=== PATIENT | male | born 1970 | race Native Hawaiian/Other Pacific Islander ===

== ENCOUNTER 2017-07-23 11:00 | Outpatient (CLI) | payer OTHER | END 2017-07-23 11:01 | disposition home or self-care (01) | LOC: SLR 11:00 | PROVIDERS: ATTEND Otolaryngology | DX: G47.30 Sleep apnea, unspecified (principal) | CPT/HCPCS: G0399 ==

== ENCOUNTER 2017-09-01 11:00 | Outpatient (CLI) | payer OTHER | END 2017-09-01 11:01 | disposition home or self-care (01) | LOC: SLR 11:00 | PROVIDERS: ATTEND Otolaryngology | DX: G47.33 Obstructive sleep apnea (adult) (pediatric) (principal) | CPT/HCPCS: 95811 ==

== ENCOUNTER 2018-11-03 06:35 | Day surgery (SDC) | payer OTHER ==
[~2018-11-03 06:35] MED LIST: NACL 0.9% 1000 ML 1,000 ML IV SCH
[2018-11-03] MEDS ORDERED: INFANTS' GAS RELIEF PO ONE (07:33)
[2018-11-03] MEDS ORDERED: WATER FOR IRRIG STERILE ONE (07:37)
[2018-11-03] MEDS ORDERED: WATER FOR IRRIG STERILE IR ONE (07:37)
--- NOTE | 2018-11-03 07:44 | Anesthesia Day of Surgery ---
Anesthesia Day of Surgery - Day of Surgery Patient Examined: Yes Patient H&P Reviewed: Yes Patient is NPO: Yes Beta Blockers: No
--- NOTE | 2018-11-03 07:45 | Anesthesia Consultation ---
Anesthesia Consult and Med Hx Date of service: 11/03/18 - Airway Anesthetic Teeth Evaluation: Good ROM Head & Neck: Adequate Mental/Hyoid Distance: Adequate Mallampati Class: Class III Intubation Access Assessment: Good - Pulmonary Exam CTA: Yes - Cardiac Exam Cardiac Exam: RRR - Pre-Operative Health Status ASA Pre-Surgery Classification: ASA2 Proposed Anesthetic Plan: MAC - Pulmonary Hx Smoking: Yes Hx Sleep Apnea: Yes
[2018-11-03] MEDS ORDERED: VERSED ONE (07:48)
[2018-11-03] MEDS ORDERED: XYLOCAINE 2% INFILTRATI ONE (07:48)
[2018-11-03] MEDS ORDERED: DIPRIVAN 10 MG/ML IV ONE (07:48)
--- NOTE | 2018-11-03 08:40 | Procedure Note ---
Date of procedure: 11/03/18 Pre-op diagnosis: Colon Polyp Screening/Hemorrhoids Post-op diagnosis: other (Two Colon Polyps removed (Cecum and Descending Colon)/Minor,Internal Hemorrhoid (not significant enough for banding)) Procedure: Colonoscopy and cold Snare Polypectomy and Cold Biopsy Anesthesia: MAC Surgeon: CIRILO WALLS Estimated blood loss: minimal Pathology: list Specimen disposition: to lab Condition: stable Disposition: same day (Avoid aspirin and NSAID for 5 days and follow up in 1 to 2 weeks ([phone]).)
[2018-11-03 09:08] VITALS: BP 135/75
--- NOTE | 2018-11-03 09:14 | Operative Report ---
PROCEDURE: Colonoscopy. INDICATIONS: This is a 47-year-old gentleman, soon to become 48 in the next few days who had a colonoscopy done as part of colon polyp screening and also to check for his hemorrhoids, which he states had been bothering him and to do flexible sig with banding if needed. DESCRIPTION OF PROCEDURE: Procedure was done after getting informed consent with MAC anesthesia. Initial rectal exam was unremarkable. Instrument was passed through the rectum onto the cecum, which was identified by the ileocecal valve and the appendiceal orifice. Visualization was fair to good. The scope was retroflexed in the cecum and then withdrawn to the hepatic flexure and then reintroduced. Polyp was noted in the cecum, which was about 10 mm in diameter. This was removed by cold snare polypectomy and retrieved. The remaining part of the cecum, ascending colon and transverse colon showed normal mucosa. There were 6-7 mm polyps noted in the descending colon that was removed by cold biopsy. The remaining part of the descending and the sigmoid colon showed normal mucosa. There was minimal bleeding from the polypectomy sites. The retroverted view of the rectum showed minor internal hemorrhoids not significant enough for banding. ASSESSMENT: Colon polyp screening. Two colon polyps noted, one in the cecum that was removed by cold snare polypectomy and another in the descending colon that was removed by cold biopsy, minor internal hemorrhoids not significant enough for banding. PLAN: Plan is to advise the patient to avoid aspirin and aspirin-related products for the next few days. Advised the patient to take hemorrhoidal medication. Follow up in the office in 1-2 weeks' time. Procedure was done in the GI lab with assistance of RN, Mary Jo Locke and the dispensary technician. Again, there was no bleeding or complications associated with the procedure. JOB# [id number] KIRSTY/NELLIE
== END 2018-11-03 06:36 | disposition home or self-care (01) ==
LOC: GIO 06:35
DX: Z12.11 Encounter for screening for malignant neoplasm of colon (principal); D12.0 Benign neoplasm of cecum; K63.5 Polyp of colon; K64.8 Other hemorrhoids; E78.5 Hyperlipidemia, unspecified; E78.00 Pure hypercholesterolemia, unspecified; G47.30 Sleep apnea, unspecified; Z87.891 Personal history of nicotine dependence; Z79.899 Other long term (current) drug therapy
CPT/HCPCS: 45380; 45385; 88305; J2250; J2704; J7030

== ENCOUNTER 2020-07-13 09:55 | Day surgery (SDC) | payer OTHER ==
[~2020-07-13 09:55] MED LIST changes: -NACL 0.9% 1000 ML 1,000 ML IV SCH; +SODIUM CHLORIDE 0.9% 1000 ML 1,000 ML IV SCH
[2020-07-13] MEDS ORDERED: LIDOCAINE MPF (2%) 20 MG/1 ML VIAL 5 ML ONE (11:35)
[2020-07-13] MEDS ORDERED: propofoL 200 MG/20 ML VIAL IV ONE ×2 (11:35→11:43)
--- NOTE | 2020-07-13 11:36 | Anesthesia Consultation ---
Anesthesia Consult and Med Hx Date of service: 07/13/20 - Airway Anesthetic Teeth Evaluation: Good ROM Head & Neck: Adequate Mental/Hyoid Distance: Adequate Mallampati Class: Class III Intubation Access Assessment: Possibly Difficult - Pre-Operative Health Status ASA Pre-Surgery Classification: ASA2 Proposed Anesthetic Plan: MAC - Pulmonary Hx Smoking: Yes (former smoker) Hx Respiratory Symptoms: No - Cardiovascular System Hx Hypertension: No - Central Nervous System CVA: No - Endocrine Hx Renal Disease: No Hx Liver Disease: No Hx Insulin Dependent Diabetes: No Hx Non-Insulin Dependent Diabetes: No Hx Thyroid Disease: No - Other Systems Hx Cancer: Yes (hx cecal ca) - Additional Comments Anesthesia Medical History Comments: No hx anesthetic complications.
--- NOTE | 2020-07-13 11:36 | Anesthesia Day of Surgery ---
Anesthesia Day of Surgery - Day of Surgery Patient Examined: Yes Patient H&P Reviewed: Yes Patient is NPO: Yes
--- NOTE | 2020-07-13 12:01 | Procedure Note ---
Date of procedure: 07/13/20 Pre-op diagnosis: Colon Polyp Screening/ H/o Colon Polyp (Cecal polyp) Post-op diagnosis: other (No Colon Polyp or Diverticular Disease noted/ Minor, Internal Hemorrhoid) Procedure: Colonoscopy Anesthesia: MAC Surgeon: CIRILO WALLS Estimated blood loss: none Pathology: none Condition: stable Disposition: same day (Resume home medication and follow up in 1 to 2 weeks ([phone]).)
--- NOTE | 2020-07-13 12:08 | Operative Report ---
PROCEDURE: Colonoscopy. INDICATIONS: This is a 49-year-old gentleman who has a prior history of colon polyp involving the cecum. Last colonoscopy was done a few years ago. Repeat colonoscopy is being done to make sure there is not any recurrence of any polyps. DESCRIPTION OF PROCEDURE: The procedure was done after getting informed consent with MAC anesthesia. Initial rectal exam was unremarkable. Instrument was passed through the rectum onto the cecum, which was identified with ileocecal valve and the appendiceal orifice. Visualization was fair to good. Terminal ileum was intubated, showed normal mucosa. There were no polyps noted in the cecum, ascending colon, transverse colon, descending colon, and sigmoid. There was no evidence of any diverticular disease. Rectum showed some minor internal hemorrhoid on the retroverted view. ASSESSMENT: History of colon polyp of the tubular adenoma type. Colon polyp screening, no colon polyps noted at present. No diverticular disease noted. Normal ileal mucosa. Minor internal hemorrhoids. There was no bleeding associated with the procedure. No complications associated with the procedure. PLAN: To have the patient resume home medication. Follow up in the office in 1-2 weeks' time. The procedure was done in the GI lab with assistance of the GI lab team, which included the GI nurse including Roldan jimenez and with assistance of anesthesia. The patient will be asked to follow up in 1-2 weeks' time. JOB# [id number] KIRSTY/NELLIE
[2020-07-13 12:56] VITALS: BP 125/74
--- NOTE | 2020-07-13 17:49 | Post Anesthesia Evaluation ---
- Post Anesthesia Evaluation Patient Participated: Yes (baseline mentation) Airway Patent: Yes Stable Respiratory Function: Yes Nausea/Vomiting: No Temp > 96.8F: Yes Pain Manageable: Yes Adequeate Hydration: Yes Anesthesia Complications: No
== END 2020-07-13 09:56 | disposition home or self-care (01) ==
LOC: GIO 09:55
DX: Z12.11 Encounter for screening for malignant neoplasm of colon (principal); K64.8 Other hemorrhoids; E78.00 Pure hypercholesterolemia, unspecified; Z86.010 Personal history of colon polyps; Z79.899 Other long term (current) drug therapy; Z98.890 Other specified postprocedural states; Z85.89 Personal history of malignant neoplasm of other organs and systems; Z87.891 Personal history of nicotine dependence
CPT/HCPCS: 45378; J2704; J7030